=== PATIENT | male | born 2005 | race African-American/Black ===

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

== ENCOUNTER 2023-01-25 09:22 | Emergency (ER) | payer OTHER ==
[~2023-01-25] VITALS: Ht 185.4 cm; Wt 100.0 kg
[~2023-01-25 09:22] MED LIST: CEPH500C2 MT; IBUP-2029 MT
[2023-01-25 09:28] VITALS: BP 130/69; PULSE 80; RESP 18; TEMP 98.2; O2SAT 98
== END 2023-01-25 11:29 | disposition home or self-care (01) ==
LOC: ER 09:22
DX: S60.121A Contusion of right index finger with damage to nail, initial encounter (principal); W34.00XA Accidental discharge from unspecified firearms or gun, initial encounter; Y93.89 Activity, other specified; Y92.89 Other specified places as the place of occurrence of the external cause; Y99.8 Other external cause status
CPT/HCPCS: 73140; 99283; Z7610